=== PATIENT | female | born 2000 | race African-American/Black ===

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

== ENCOUNTER 2018-05-14 03:26 | Emergency (ER) | payer OTHER ==
[~2018-05-14] VITALS: Ht 167.6 cm; Wt 94.3 kg
[2018-05-14 03:38] VITALS: Ht 167.6 cm; Wt 94.3 kg
[2018-05-14 04:43] VITALS: BP 116/63
== END 2018-05-14 04:43 | disposition home or self-care (01) ==
LOC: ED 03:26
DX: R21 Rash and other nonspecific skin eruption (principal); J45.909 Unspecified asthma, uncomplicated; Z88.5 Allergy status to narcotic agent; Z91.011 Allergy to milk products; Z88.1 Allergy status to other antibiotic agents

== ENCOUNTER 2018-05-17 22:57 | Emergency (ER) | payer OTHER ==
[~2018-05-17] VITALS: Ht 165.1 cm; Wt 93.0 kg
[2018-05-17 23:52] LABS: BASOPHIL % 0.5 % (0-2); PLATELET COUNT 237 x10^3mcL (130-400)
[2018-05-18 00:11] LABS: CALCIUM 9.1 mg/dL (8.5-10.1); CARBON DIOXIDE 28.7 mmol/L (21-32); CHLORIDE SERUM 103 mmol/L (98-107); CREATININE SERUM 0.8 mg/dL (0.6-1.0); GFR1 > 60 mL/min; GLUCOSE SERUM 99 mg/dL (74-106); POTASSIUM SERUM 3.6 mmol/L (3.5-5.1); SODIUM SERUM 139 mmol/L (136-145)
[2018-05-18 00:16] LABS: ALBUMIN 3.6 g/dL (3.4-5.0); ALKALINE PHOSPHATASE 42 U/L (46-116); AST/SGOT 12 U/L (15-37); BILIRUBIN TOTAL 0.43 mg/dL (0.20-1.00)
[2018-05-18 00:20] LABS: FREE T4 0.94 ng/dL (0.76-1.46); FREE THYROXINE INDEX 2.3 ug/dL (1.4-4.5); T4(THYROXINE) 6.5 ug/dL (4.7-13.3)
[2018-05-18 00:33] LABS: ALT/SGPT 18 U/L (14-59)
[2018-05-18 00:42] LABS: T3 TOTAL 1.01 ng/mL
[2018-05-18 01:18] LABS: AMPHETAMINE QUAL UR NONE DETECTED (See below)
[2018-05-18 02:35] VITALS: BP 125/81
== END 2018-05-18 02:35 | disposition home or self-care (01) ==
LOC: ED 22:57
PROVIDERS: Emergency Medicine
DX: F41.9 Anxiety disorder, unspecified (principal); J45.909 Unspecified asthma, uncomplicated; Z86.59 Personal history of other mental and behavioral disorders; Z88.5 Allergy status to narcotic agent; Z91.011 Allergy to milk products; Z88.8 Allergy status to other drugs, medicaments and biological substances
CPT/HCPCS: 36415; 84439; G0480

== ENCOUNTER 2018-05-20 00:19 | Emergency (ER) | payer OTHER ==
[~2018-05-20] VITALS: Ht 172.7 cm; Wt 65.8 kg
[2018-05-20 00:38] VITALS: Ht 172.7 cm; Wt 65.8 kg
[2018-05-20 00:46] LABS: BASOPHIL % 0.6 % (0-2); PLATELET COUNT 243 x10^3mcL (130-400); RED CELL DISTRIBUTION WIDTH 14.1 % (11.5-14.5)
[2018-05-20 00:53] LABS: CALCIUM 9.3 mg/dL (8.5-10.1); CARBON DIOXIDE 26.4 mmol/L (21-32); CHLORIDE SERUM 100 mmol/L (98-107); CREATININE SERUM 0.8 mg/dL (0.6-1.0); GFR1 > 60 mL/min; GLUCOSE SERUM 91 mg/dL (74-106); POTASSIUM SERUM 3.4 mmol/L (3.5-5.1); SODIUM SERUM 134 mmol/L (136-145)
[2018-05-20 00:57] LABS: ALBUMIN 4.3 g/dL (3.4-5.0); ALKALINE PHOSPHATASE 53 U/L (46-116); ALT/SGPT 18 U/L (14-59); AST/SGOT 18 U/L (15-37); BILIRUBIN TOTAL 0.56 mg/dL (0.20-1.00); LIPASE 122 IU/L (73-393)
[2018-05-20 01:00] LABS: TOTAL PROTEIN, SERUM 9.3 g/dL (6.4-8.2)
[2018-05-20 06:01] VITALS: BP 113/77
== END 2018-05-20 06:01 | disposition home or self-care (01) ==
LOC: ED 00:19
PROVIDERS: Emergency Medicine
DX: K50.90 Crohn's disease, unspecified, without complications (principal); J45.909 Unspecified asthma, uncomplicated; Z91.011 Allergy to milk products; Z88.5 Allergy status to narcotic agent; Z91.010 Allergy to peanuts; Z91.018 Allergy to other foods; Z88.8 Allergy status to other drugs, medicaments and biological substances
CPT/HCPCS: J7030; Q0163

== ENCOUNTER 2018-06-04 02:20 | Emergency (ER) | payer OTHER ==
[~2018-06-04] VITALS: Ht 167.6 cm; Wt 93.9 kg
[2018-06-04 02:31] VITALS: Ht 167.6 cm; Wt 93.9 kg
[2018-06-04 04:41] VITALS: BP 124/83
[2018-06-04 07:55] LABS: AMPHETAMINE QUAL UR NONE DETECTED (See below)
== END 2018-06-04 04:41 | disposition home or self-care (01) ==
LOC: ED 02:20
PROVIDERS: Emergency Medicine
DX: R10.9 Unspecified abdominal pain (principal); R14.0 Abdominal distension (gaseous); R11.0 Nausea; J45.909 Unspecified asthma, uncomplicated; K50.90 Crohn's disease, unspecified, without complications; L40.9 Psoriasis, unspecified; F29 Unspecified psychosis not due to a substance or known physiological condition; Z91.011 Allergy to milk products; Z88.5 Allergy status to narcotic agent; Z88.8 Allergy status to other drugs, medicaments and biological substances; Z91.018 Allergy to other foods
CPT/HCPCS: J0500; Q0092